=== PATIENT | female | born 1940 | race Caucasian/White ===

== ENCOUNTER 2019-03-03 11:50 | Inpatient (IN) | payer MEDICARE ==
[~2019-03-03] VITALS: Ht 152.4 cm; Wt 73.9 kg
[~2019-03-03 11:50] MED LIST: HYDR12.5 PO; METF-440 PO; QUET25TA PO; RISP0.253 PO; RISP12.5; SERT50TA12 PO
--- NOTE | 2019-03-03 12:30 | NUR ---
BIBDAUGHTER IN LAW, FROM HOME, SENT BY PMD FOR MEDICAL CLEARANCE HEARING VOICES -SI/HI. PATIENT A/OX3, KEPT COMFORTABLE, CHANGED INTO GOWN, ATTACHED TO THE MONITOR. NO DISTRESS.
[2019-03-03 12:44] LABS: BASOPHILS % (AUTO) 0.3 % (0.0-2.0); EOSINOPHILS % (AUTO) 0.6 % (0.0-6.0); HEMATOCRIT 39 % (33-45); HEMOGLOBIN 13.3 g/dL (11.5-14.8); LYMPHOCYTES # (AUTO) 1.3 /CMM (0.8-4.8); MEAN CORPUSCULAR HGB CONC 34 g/dl (31.0-36.0); MEAN CORPUSCULAR VOLUME 89 fL (82-100); MONOCYTES # (AUTO) 0.5 /CMM (0.1-1.30); MONOCYTES % (AUTO) 7.6 % (2.0-12.0); NEUTROPHILS # (AUTO) 4.4 /CMM (1.8-8.9); NEUTROPHILS % (AUTO) 70.5 % (43.0-81.0); PLATELET COUNT (AUTO) 288 /CMM (150-450); RED BLOOD CELL COUNT(AUTO) 4.39 MIL/uL (4.0-5.2); WHITE BLOOD COUNT (AUTO) 6.3 K/uL (4.3-11.0)
[2019-03-03 12:56] LABS: APPEARANCE,URINE Clear (CLEAR); BILIRUBIN,URINE Negative (NEGATIVE); BLOOD, URINE Negative Ery/uL (NEGATIVE); COLOR,URINE Yellow (YELLOW); KETONES,URINE Trace (NEGATIVE); LEUKOCYTE ESTERASE ,URINE Negative (NEGATIVE); NITRITE, URINE Negative (NEGATIVE); PH,URINE 6.5 (5.0-8.0); PROTEIN,URINE Negative (NEGATIVE); UGLUCOSE Negative (NEGATIVE)
[2019-03-03 12:58] LABS: BACTERIA,URINE Few /HPF (None Seen); RBC,URINE 0-2 /HPF (0-2); SQUAMOUS EPITHELIAL CELL,UR Few /HPF (None Seen); WBC,URINE 0-2 /HPF (0-3)
[2019-03-03 12:59] LABS: ALANINE AMINOTRANSFERASE 12 U/L (12-78); ALBUMIN 3.9 g/dL (3.4-5.0); ALKALINE PHOSPHATASE 115 U/L (46-116); ASPARTATE AMINOTRANSFERASE 11 U/L (15-37); BILIRUBIN,DIRECT 0.1 mg/dL (0.0-0.2); BILIRUBIN,TOTAL 0.3 mg/dL (0.2-1.0); CALCIUM, SERUM 9.6 mg/dL (8.5-10.1); CARBON DIOXIDE 26 mmol/L (21-32); CHLORIDE 97 mmol/L (98-107); CREATININE 0.9 mg/dL (0.6-1.3); GLUCOSE 85 mg/dL (74-106); POTASSIUM 4.2 mmol/L (3.5-5.1); SODIUM SERUM 133 mmol/L (136-145); TOTAL PROTEIN, SERUM 7.8 g/dL (6.4-8.2); UREA NITROGEN, BLOOD 13 mg/dL (7-18)
[2019-03-03 13:01] LABS: ACETAMINOPHEN 0 ug/ml (10-30); ALCOHOL, BLOOD < 3 mg/dL (0-0); SALICYLATE 0.9 mg/dL (2.8-20.0)
[2019-03-03] MEDS ORDERED: IV NS 0.9% 500 ML BAG IV ONE (13:30)
[2019-03-03] MEDS ORDERED: LISI10TA5 PO (14:11)
[2019-03-03] MEDS ORDERED: ATOR40TA PO (14:11)
[2019-03-03] MEDS ORDERED: PARO20TA7 PO (14:13)
[2019-03-03] MEDS ORDERED: ARIP5TAB10 PO (14:13)
[2019-03-03] MEDS ORDERED: CHOL100040 PO (14:17)
[2019-03-03] MEDS ORDERED: ASPI-1169 PO (14:17)
[2019-03-03] MEDS ORDERED: FLUT9.9S16 NS (14:17)
[2019-03-03] MEDS ORDERED: TAMS-12 PO (14:17)
[2019-03-03] MEDS ORDERED: CALC600T12 PO (14:17)
[2019-03-03] MEDS ORDERED: LACT1CAP57 PO (14:18)
[2019-03-03] MEDS ORDERED: DICL100G16 TP (14:21)
[2019-03-03] MEDS ORDERED: FLUT16SP NS (14:22)
[2019-03-03] MEDS ORDERED: LOPE2CAP40 PO (14:22)
[2019-03-03] MEDS ORDERED: LOPERAMIDE HCL (2 MG CAP) 2 MG CAPSULE PO PRN (16:00)
[2019-03-03] MEDS: METFORMIN 500 MG TABLET PO SCH (17:00)
--- NOTE | 2019-03-03 17:06 | NUR ---
PATIENT DEPARTED TO [facility], IN STABLE CONDITION.
[2019-03-03] MEDS ORDERED: MAGNESIUM HYDROXIDE 30 ML UDC PO PRN (17:30)
[2019-03-03] MEDS ORDERED: MAG HYDROX/AL HYDROX/SIMETH 30 ML UDC PO PRN (17:30)
[2019-03-03] MEDS ORDERED: LORAZEPAM 0.5 MG TABLET PO PRN (17:30)
[2019-03-03] MEDS ORDERED: ACETAMINOPHEN 325 MG TABLET PO PRN (17:30)
[2019-03-03] MEDS ORDERED: BLOOD SUGAR DIAGNOSTIC 1 EACH STRIP IN ONE (17:30)
[2019-03-03] MEDS ORDERED: TEMAZEPAM 7.5 MG CAPSULE PO PRN (17:30)
[2019-03-03 18:43] VITALS: BP 144/82
--- NOTE | 2019-03-03 18:45 | NUR ---
BAKERY MACHINE MECHANIC NOTE: PATIENT IS A 78 YEAR OLD FEMALE ADMITTED TO [facility] ON A 5150 HOLD FOR GD. PER HOLF, "WHEN INTERVIEWED AT BEDSIDE, PRINCESS PRESENTED FLAT AFFECT, DEPRESSED MOOD, SAD FACIAL EXPRESSION, SHE IS VERY GUARDED AND SHE STATED "I HEAR VOICES I HEAR HEAD TALK. I DON'T WANT TO GO TO THE PSYCH UNIT." HER SON ERICA REPORTS THAT PRINCESS HAS BEEN HALLUCINATING NON-STOP. SHE IS VERY FORGETFUL AND HAS TRIED TO WALK OUT THE FRONT DOOR INTO THE STREET. FAMILY MEMBERS CANNOT LEAVE HER ALONE AND SHE IS UNSAFE FOR DISCHARGE. FAMILY DOES NOT FEEL SAFE WITH HER HOME UNTIL SHE IS STABILIZED ON MEDICATIONS." UPON FACE TO FACE ASSESSMENT, PATIENT IS ALERT X3, FORGETFUL. CONFUSED AT TIMES. WELL GROOMED. CLEAR SPEECH. DENIES SI/HI AT THIS TIME. COOPERATIVE WITH PLAN OF CARE. DEPRESSED MOOD. FLAT AFFECT. GUARDED. PATIENT IS HAVING AUDITORY HALLUCINATIONS. PATIENT STATES SHE IS HEARING INAUDIBLE VOICES. PATIENT DENIES THE VOICES TELLING HER TO HARM HERSELF OR OTHERS. INFORMED PATIENT TO INFORM A STAFF MEMBER IF SHE STARTS TO HAVE COMMAND HALLUCINATIONS OR THE THOUGHT OF HARMING HERSELF/OTHERS. PATIENT HANDBOOK GIVEN ALONG WITH GUIDE TO PRESCRIPTIONS. VSS. SKIN CHECK COMPLETE WITH PICTURES IN CHART. CONSENTS SIGNED. ALLERGIES DOCUMENTED. MRSA COMPLETE IN ER, AWAITING RESULTS. CONTACTED [facility] TO INFORM OF ADMISSION, NO RESPONSE, LEFT VM, WILL ENDORSE TO FOLLOWING SHIFT TO TRY CALLING AGAIN. INVENTORY COMPLETE WITH BELONGINGS. CONTACTED DR DA SILVA AND DR SINGH AND INFORMED THEM OF PATIENT'S ADMISSION, TO REVIEW MEDICATIONS AND RETRIEVE ADMITTING ORDERS. WILL MONITOR PATIENT Q 15 MINUTES FOR SAFETY AND BEHAVIOR PER [facility] [employer].
--- NOTE | 2019-03-03 20:00 | NUR ---
Gps rn note. Patient refused metformin, explained the risk and benefits, patient stated that her blood sugar was within normal level and it was not high enough to take metformin and that was her previous doctor said to her. Patient wanted her blood sugar to be check Qac and hs
[2019-03-03 20:09] VITALS: BP 121/75
[2019-03-03] MEDS ORDERED: DEXTROSE 50%-WATER 50 ML DISP.SYRIN IV PRN (21:00)
[2019-03-03] MEDS: ATORVASTATIN 40 MG TABLET PO SCH (21:18)
[2019-03-03] MEDS: TAMSULOSIN 0.4 MG CAP.SR.24H PO SCH (21:18)
[2019-03-03] MEDS: BLOOD SUGAR DIAGNOSTIC 1 EACH STRIP IN SCH (21:19)
[2019-03-03] MEDS: FLUTICASONE PROPIONATE 16 GM BOTTLE NS SCH (21:19)
[2019-03-03] MEDS ORDERED: ARIPIPRAZOLE 5 MG TABLET PO SCH (22:00)
[2019-03-04 07:41] LABS: ALBUMIN 3.5 g/dL (3.4-5.0); BILIRUBIN,TOTAL 0.5 mg/dL (0.2-1.0); CALCIUM, SERUM 8.8 mg/dL (8.5-10.1); CREATININE 0.7 mg/dL (0.6-1.3); POTASSIUM 3.6 mmol/L (3.5-5.1); TOTAL PROTEIN, SERUM 6.8 g/dL (6.4-8.2)
[2019-03-04] MEDS: BLOOD SUGAR DIAGNOSTIC 1 EACH STRIP IN SCH ×4 (07:46→21:15)
[2019-03-04 07:52] LABS: CHOLESTEROL 115 mg/dL (<200); HDL CHOLESTEROL 62 mg/dL (40-60); LDL 47 mg/dL (0-99); TRIGLYCERIDES 51 mg/dL (30-150)
[2019-03-04 08:00] VITALS: BP 129/75
--- NOTE | 2019-03-04 08:19 | NUR ---
GPS RN NOTES PT ATTEMPTED TO EXIT FLOOR; LEFT ROOM REFUSING TO PUT GOWN ON
[2019-03-04] MEDS: CALCIUM CARBONATE (1250) 500 MG TABLET PO SCH (08:54)
[2019-03-04] MEDS: LISINOPRIL (10MG) 10 MG TABLET PO SCH (08:54)
[2019-03-04] MEDS: CHOLECALCIFEROL 1,000 UNIT TABLET (VIT D3) PO SCH (08:55)
[2019-03-04] MEDS: LACTOBACILLUS RHAMNOSUS GG 1 EACH CAP.SPRINK PO SCH (08:55)
[2019-03-04] MEDS: METFORMIN 500 MG TABLET PO SCH ×2 (08:56→16:54)
[2019-03-04] MEDS: ASPIRIN 81 MG TAB.CHEW PO SCH (08:56)
[2019-03-04] MEDS: DICLOFENAC TOPICAL 100 GM GEL..GM. TP SCH ×2 (09:00→17:00)
--- NOTE | 2019-03-04 11:43 | NUR ---
PHONE CALL SW contacted pts gianna Jama [phone] who provided SW with collateral information and also discussed treatment and discharge planning. Per son, he stated that pt was recently discharged from [facility] last week after being on a 72 hour hold. Son also mentioned that pts primary care physician Dr. Rohan Maya Address: [address], [place] [address] wishes for pt to be discharged to a SNF that he follows. Son stated that he is okay with pt being discharged short term to a SNF.
--- NOTE | 2019-03-04 11:47 | NUR ---
PCP PHONE CALL SW contacted pts primary care physician Dr. Rohan Maya Address: [address], [place] [address] to request a list of SNF's that he follows for discharge planning. Per executive receptionist, Dr. Maya goes to [facility], [facility], and [facility]. Once pt is stable SW will refer pt to those facilities.
--- NOTE | 2019-03-04 13:49 | NUR ---
INITIAL DISCHARGE PLAN: Per gianna Jama [phone], he states that pts primary care physician Dr. Rohan Maya Address: [address], [place] [address] wishes for pt to be discharged to a SNF that he follows. Son stated that he is okay with pt being discharged short term to a SNF. SW will help form a safe and proper discharge in collaboration with .
--- NOTE | 2019-03-04 15:22 | NUR ---
SHONA received a call from pts daughter in law Genevieve [phone] and informed SW that she is pts SS caregiver and wanted to inquire regarding pts discharge plan. SHONA informed her that the plan is for pt to be discharged to one of Dr. Maya's [facility]ilities once pt was stable. Genevieve agreed with discharge plan.
[2019-03-04 16:00] VITALS: BP 143/86
--- NOTE | 2019-03-04 16:32 | NUR ---
Group Note 03/04/19: SW approached patient at bedside and invited them to attend today's support group at 2 pm in the activities room regarding mindfulness. Patient refused to participate in group. SW encouraged pt. to participate or sit in. Patient refused. SW respected patient self determination and SW will invite patient to next group session.
[2019-03-04] MEDS: SERTRALINE HCL 50 MG TABLET PO SCH (17:09)
--- NOTE | 2019-03-04 18:54 | NUR ---
GPS RN NOTES PT'S FAMILY BROUGHT IN [facility] AT 1830. ENDORSED TO PM NURSE TO ENDORSE ADMINISTRATION FOR TMRW.
[2019-03-04 20:39] VITALS: BP 125/88
[2019-03-04] MEDS: ATORVASTATIN 40 MG TABLET PO SCH (21:05)
[2019-03-04] MEDS: TAMSULOSIN 0.4 MG CAP.SR.24H PO SCH (21:05)
[2019-03-04] MEDS: BENZTROPINE MESYLATE (1 MG) 1 MG TABLET PO SCH (21:05)
[2019-03-04] MEDS: FLUTICASONE PROPIONATE 16 GM BOTTLE NS SCH (21:16)
[2019-03-04] MEDS ORDERED: risperiDONE-M 0.5 MG TAB.RAPDIS PO SCH (22:00)
[2019-03-05] MEDS: BLOOD SUGAR DIAGNOSTIC 1 EACH STRIP IN SCH ×4 (07:20→22:31)
[2019-03-05 08:00] VITALS: BP 97/71
[2019-03-05] MEDS: METFORMIN 500 MG TABLET PO SCH ×4 (08:14→16:41)
[2019-03-05] MEDS: CHOLECALCIFEROL 1,000 UNIT TABLET (VIT D3) PO SCH (08:14)
[2019-03-05] MEDS: LACTOBACILLUS RHAMNOSUS GG 1 EACH CAP.SPRINK PO SCH (08:14)
[2019-03-05] MEDS: CALCIUM CARBONATE (1250) 500 MG TABLET PO SCH (08:15)
[2019-03-05] MEDS: ASPIRIN 81 MG TAB.CHEW PO SCH ×2 (08:15→08:34)
[2019-03-05] MEDS: LISINOPRIL (10MG) 10 MG TABLET PO SCH (08:15)
[2019-03-05] MEDS: DICLOFENAC TOPICAL 100 GM GEL..GM. TP SCH ×2 (08:16→16:06)
--- NOTE | 2019-03-05 14:46 | NUR ---
SW received a call from pts gianna Jama [phone] requesting discharge information. SHONA informed him that pt does not have a discharge order yet and that once she was more stable SW will refer to the SNF's Dr. Maya follows. Son agreed and stated he will be coming on this present day to visit pt.
--- NOTE | 2019-03-05 15:27 | NUR ---
GROUP NOTE: SW encouraged pt to attend group on this present day to discuss "impaired reality-testing." Pt was asleep and not easily aroused.
[2019-03-05 16:00] VITALS: BP 132/68
[2019-03-05] MEDS: SERTRALINE HCL 50 MG TABLET PO SCH (16:06)
--- NOTE | 2019-03-05 19:22 | NUR ---
RESTING IN BED, COMFORTABLE, BREATHING PATTERN EVEN, NOT IN ANY FORM OF ANY DISTRESS.
[2019-03-05 19:55] VITALS: BP 104/64
[2019-03-05] MEDS: TAMSULOSIN 0.4 MG CAP.SR.24H PO SCH (21:11)
[2019-03-05] MEDS: ATORVASTATIN 40 MG TABLET PO SCH (21:11)
[2019-03-05] MEDS: BENZTROPINE MESYLATE (1 MG) 1 MG TABLET PO SCH (21:11)
[2019-03-05] MEDS: risperiDONE-M 0.5 MG TAB.RAPDIS PO SCH (21:15)
[2019-03-05] MEDS: FLUTICASONE PROPIONATE 16 GM BOTTLE NS SCH (21:26)
--- NOTE | 2019-03-06 07:30 | NUR ---
INITIAL PT IN BED CALM AND QUIET, COMFORTABLE, NO APPARENT DISTRESS NOTED. COOPERATIVE WILL CONTINUE TO MONITOR
[2019-03-06] MEDS: BLOOD SUGAR DIAGNOSTIC 1 EACH STRIP IN SCH ×4 (07:45→21:54)
[2019-03-06] MEDS: INSULIN REGULAR, HUMAN 100 UNIT/ML 3 ML VIAL SQ PRN ×3 (07:45→17:44)
[2019-03-06 08:00] VITALS: BP 106/63
[2019-03-06] MEDS: LISINOPRIL (10MG) 10 MG TABLET PO SCH (08:41)
[2019-03-06] MEDS: LACTOBACILLUS RHAMNOSUS GG 1 EACH CAP.SPRINK PO SCH (08:41)
[2019-03-06] MEDS: METFORMIN 500 MG TABLET PO SCH ×2 (08:41→16:54)
[2019-03-06] MEDS: CALCIUM CARBONATE (1250) 500 MG TABLET PO SCH (08:41)
[2019-03-06] MEDS: CHOLECALCIFEROL 1,000 UNIT TABLET (VIT D3) PO SCH (08:41)
[2019-03-06] MEDS: ASPIRIN 81 MG TAB.CHEW PO SCH (08:41)
[2019-03-06] MEDS: DICLOFENAC TOPICAL 100 GM GEL..GM. TP SCH ×2 (08:44→16:49)
[2019-03-06 16:00] VITALS: BP 101/59
[2019-03-06] MEDS: SERTRALINE HCL 50 MG TABLET PO SCH (16:54)
--- NOTE | 2019-03-06 18:02 | NUR ---
CLOSING FAMILY CAME TO VISIT PT 0730 POCT-96 THEN AT 12 NOON POCT 74 AND FINALLY AT 1730 POCT 96 ALL THREE INCIDENCE CONFRONTED WITHOUTUSE OF REGULAR INSULIN. PT COOPERATIVE AND CALM ALL DAY TAKING ALL MEDICATIONS AND INSULIN SHOOTS. PT KEPT SAFE CHANTALE REPORT TO PM SHIFT RN FOR CONTINUITY OF CARE
--- NOTE | 2019-03-06 18:07 | NUR ---
CLOSING PT COOPERATIVE AND CALM ALL DAY TAKING ALL MEDICATIONS AFTER COMPLAINS ABOUT WHY DOES SHE HAVE TO TAKE MEDICATIONS PT EXPLAINED PLAN OF CARE. PT KEPT SAFE CHANTALE REPORT TO PM SHIFT RN FOR CONTINUITY OF CARE
--- NOTE | 2019-03-06 19:07 | NUR ---
COMFORTABLE IN BED, SHOWS NO S/S OF ANY PAIN, NO APPARENT DISTRESS NOTED. CALM, COOPERATIVE, ENVIRONMENTAL SAFETY CHECK DONE. SAFETY PRECAUTION OBSERVED, BED ALARM ON. BED ON LOWEST POSITION. WILL CONTINUE TO MONITOR FOR SAFETY.WILL
[2019-03-06 19:53] VITALS: BP 103/66
[2019-03-06] MEDS: FLUTICASONE PROPIONATE 16 GM BOTTLE NS SCH (21:53)
[2019-03-06] MEDS: ATORVASTATIN 40 MG TABLET PO SCH (21:54)
[2019-03-06] MEDS: BENZTROPINE MESYLATE (1 MG) 1 MG TABLET PO SCH (21:54)
[2019-03-06] MEDS: TAMSULOSIN 0.4 MG CAP.SR.24H PO SCH (21:54)
[2019-03-06] MEDS: risperiDONE-M 0.5 MG TAB.RAPDIS PO SCH (21:54)
[2019-03-07] MEDS: BLOOD SUGAR DIAGNOSTIC 1 EACH STRIP IN SCH (07:56)
--- NOTE | 2019-03-07 07:57 | NUR ---
RN NOTE: 0730 BS 86MG/DL; NO COVERAGE NEEDED.
[2019-03-07 08:00] VITALS: BP 100/59
[2019-03-07] MEDS: ASPIRIN 81 MG TAB.CHEW PO SCH (08:29)
[2019-03-07] MEDS: LISINOPRIL (10MG) 10 MG TABLET PO SCH (08:29)
[2019-03-07] MEDS: LACTOBACILLUS RHAMNOSUS GG 1 EACH CAP.SPRINK PO SCH (08:29)
[2019-03-07] MEDS: CALCIUM CARBONATE (1250) 500 MG TABLET PO SCH (08:29)
[2019-03-07] MEDS: CHOLECALCIFEROL 1,000 UNIT TABLET (VIT D3) PO SCH (08:29)
[2019-03-07] MEDS: METFORMIN 500 MG TABLET PO SCH ×2 (08:29→16:36)
--- NOTE | 2019-03-07 09:48 | NUR ---
RN NOTE: INFORMED DR SINGH THAT THE PATIENT'S BS HAS BEEN WNL SINCE HER ADMISSION HERE. PER , JUAN IVANS BS CHECKS AND INSULIN.
[2019-03-07 16:00] VITALS: BP 106/71
[2019-03-07] MEDS: SERTRALINE HCL 50 MG TABLET PO SCH (16:36)
[2019-03-07 19:52] VITALS: BP 110/72
--- NOTE | 2019-03-07 21:00 | NUR ---
RN NOTES: PT. REFUSED WEEKLY SKIN REASSESSMENT AND PICTURES , ENCOURAGED EXPLAINED RISKS AND BENEFITS STILL REFUSED, PER PT. MY SKIN IS FINE ,PT. BEHAVIOR VERY UNCOOPERATIVE , AGGRESSIVE.
[2019-03-07] MEDS: FLUTICASONE PROPIONATE 16 GM BOTTLE NS SCH (21:31)
[2019-03-07] MEDS: BENZTROPINE MESYLATE (1 MG) 1 MG TABLET PO SCH (21:31)
[2019-03-07] MEDS: risperiDONE-M 0.5 MG TAB.RAPDIS PO SCH (21:31)
[2019-03-07] MEDS: TAMSULOSIN 0.4 MG CAP.SR.24H PO SCH (21:32)
[2019-03-07] MEDS: ATORVASTATIN 40 MG TABLET PO SCH (21:32)
[2019-03-08] MEDS: LACTOBACILLUS RHAMNOSUS GG 1 EACH CAP.SPRINK PO SCH (08:39)
[2019-03-08] MEDS: CHOLECALCIFEROL 1,000 UNIT TABLET (VIT D3) PO SCH (08:39)
[2019-03-08] MEDS: METFORMIN 500 MG TABLET PO SCH ×2 (08:39→17:09)
[2019-03-08] MEDS: CALCIUM CARBONATE (1250) 500 MG TABLET PO SCH (08:39)
[2019-03-08] MEDS: LISINOPRIL (10MG) 10 MG TABLET PO SCH (08:41)
[2019-03-08] MEDS: ASPIRIN 81 MG TAB.CHEW PO SCH (08:45)
[2019-03-08 16:00] VITALS: BP 127/69
[2019-03-08] MEDS: SERTRALINE HCL 50 MG TABLET PO SCH (17:09)
[2019-03-08 20:16] VITALS: BP 142/78
[2019-03-08] MEDS: FLUTICASONE PROPIONATE 16 GM BOTTLE NS SCH (21:12)
[2019-03-08] MEDS: BENZTROPINE MESYLATE (1 MG) 1 MG TABLET PO SCH (21:12)
[2019-03-08] MEDS: ATORVASTATIN 40 MG TABLET PO SCH (21:12)
[2019-03-08] MEDS: TAMSULOSIN 0.4 MG CAP.SR.24H PO SCH (21:12)
[2019-03-08] MEDS: risperiDONE-M 0.5 MG TAB.RAPDIS PO SCH (21:13)
[2019-03-09 08:00] VITALS: BP 100/54
[2019-03-09] MEDS: METFORMIN 500 MG TABLET PO SCH ×2 (08:08→17:04)
[2019-03-09] MEDS: ASPIRIN 81 MG TAB.CHEW PO SCH (08:08)
[2019-03-09] MEDS: CALCIUM CARBONATE (1250) 500 MG TABLET PO SCH (08:08)
[2019-03-09] MEDS: LACTOBACILLUS RHAMNOSUS GG 1 EACH CAP.SPRINK PO SCH (08:08)
[2019-03-09] MEDS: CHOLECALCIFEROL 1,000 UNIT TABLET (VIT D3) PO SCH (08:09)
[2019-03-09] MEDS: LISINOPRIL (10MG) 10 MG TABLET PO SCH (08:40)
--- NOTE | 2019-03-09 09:37 | NUR ---
SNF REFERRALS: SHONA faxed SNF referrals to [facility] Address: [address] [place] [address] , [facility] Address: [address] [place] [address] , and [facility] Address: [address] [place] [address] for review.
--- NOTE | 2019-03-09 10:28 | NUR ---
SW received a call from Susan, music coordinator at [facility] Address: [address] [place] [address] stating pt cannot be accepted due to having too many psych issues.
--- NOTE | 2019-03-09 10:39 | NUR ---
SW received a call from Louann, college scouting coordinator at [facility] Address: [address] [place] [id number] stating pt has been accepted to the facility.
[2019-03-09 16:00] VITALS: BP 106/69
--- NOTE | 2019-03-09 16:06 | NUR ---
Group Note: SW encouraged pt to participate in group therapy on 03/09/19 at 2pm discussing "discharge planning." Pt was in her room and refusing to participate but the pt refused and stated that she wanted to remain in her room.
[2019-03-09] MEDS: SERTRALINE HCL 50 MG TABLET PO SCH (17:04)
[2019-03-09 20:24] VITALS: BP 112/87
[2019-03-09] MEDS: FLUTICASONE PROPIONATE 16 GM BOTTLE NS SCH (21:22)
[2019-03-09] MEDS: ATORVASTATIN 40 MG TABLET PO SCH (21:22)
[2019-03-09] MEDS: TAMSULOSIN 0.4 MG CAP.SR.24H PO SCH (21:22)
[2019-03-09] MEDS: risperiDONE-M 0.5 MG TAB.RAPDIS PO SCH (21:23)
[2019-03-09] MEDS: BENZTROPINE MESYLATE (1 MG) 1 MG TABLET PO SCH (21:23)
[2019-03-10] MEDS ORDERED: [UNRECOGNIZED DRUG - SUPPLY] (01:15)
[2019-03-10 08:00] VITALS: BP 135/71
[2019-03-10] MEDS: CHOLECALCIFEROL 1,000 UNIT TABLET (VIT D3) PO SCH (08:10)
[2019-03-10] MEDS: LACTOBACILLUS RHAMNOSUS GG 1 EACH CAP.SPRINK PO SCH (08:10)
[2019-03-10] MEDS: LISINOPRIL (10MG) 10 MG TABLET PO SCH (08:10)
[2019-03-10] MEDS: ASPIRIN 81 MG TAB.CHEW PO SCH (08:10)
[2019-03-10] MEDS: METFORMIN 500 MG TABLET PO SCH ×2 (08:10→16:39)
[2019-03-10] MEDS: CALCIUM CARBONATE (1250) 500 MG TABLET PO SCH (08:10)
[2019-03-10] MEDS: risperiDONE 0.25 MG TABLET PO SCH (08:12)
--- NOTE | 2019-03-10 13:16 | NUR ---
SHONA received a call from pts gianna Jmaa [phone] requesting discharge information. SW informed him that pt does not have a discharge order yet as pt disclosed to psychiatric that she is hearing voices and informed him that psychiatrist has started pt on an antipsychotic. Son sated that he agrees with treatment plan and also stated that he would like to know discharge date as he will be going out of town. SW informed him that as soon as she gets discharge order he would inform him.
--- NOTE | 2019-03-10 15:44 | NUR ---
GROUP NOTE: SW encouraged pt to participate in group on this present day discussing "discharge planning." Pt was in her room and refusing to participate, SW encouraged pt to get up from bed and go to the activity room. Pt agreed and stated that she stays in bed all day because she feels tired as she has not been able to sleep. SW introduced her to another pt and encouraged pt to socialize.
[2019-03-10 16:00] VITALS: BP 107/68
[2019-03-10] MEDS: SERTRALINE HCL 50 MG TABLET PO SCH (16:51)
[2019-03-10 20:17] LABS: ALBUMIN 3.7 g/dL (3.4-5.0); BILIRUBIN,TOTAL 0.3 mg/dL (0.2-1.0); CALCIUM, SERUM 9.5 mg/dL (8.5-10.1); CREATININE 0.8 mg/dL (0.6-1.3); TOTAL PROTEIN, SERUM 7.5 g/dL (6.4-8.2)
[2019-03-10 20:42] VITALS: BP 100/65
[2019-03-10 21:09] LABS: BASOPHILS % (AUTO) 0.4 % (0.0-2.0); EOSINOPHILS % (AUTO) 1.1 % (0.0-6.0); HEMATOCRIT 39 % (33-45); HEMOGLOBIN 13.3 g/dL (11.5-14.8); LYMPHOCYTES # (AUTO) 1.8 /CMM (0.8-4.8); LYMPHOCYTES % (AUTO) 26.8 % (20.0-44.0); MEAN CORPUSCULAR HGB CONC 34 g/dl (31.0-36.0); MEAN CORPUSCULAR VOLUME 88 fL (82-100); MONOCYTES # (AUTO) 0.5 /CMM (0.1-1.30); MONOCYTES % (AUTO) 7.4 % (2.0-12.0); NEUTROPHILS # (AUTO) 4.4 /CMM (1.8-8.9); NEUTROPHILS % (AUTO) 64.3 % (43.0-81.0); PLATELET COUNT (AUTO) 314 /CMM (150-450); RED BLOOD CELL COUNT(AUTO) 4.44 MIL/uL (4.0-5.2); WHITE BLOOD COUNT (AUTO) 6.8 K/uL (4.3-11.0)
[2019-03-10] MEDS: FLUTICASONE PROPIONATE 16 GM BOTTLE NS SCH (21:37)
[2019-03-10] MEDS: BENZTROPINE MESYLATE (1 MG) 1 MG TABLET PO SCH (21:38)
[2019-03-10] MEDS: risperiDONE-M 0.5 MG TAB.RAPDIS PO SCH (21:38)
[2019-03-10] MEDS: ATORVASTATIN 40 MG TABLET PO SCH (21:39)
[2019-03-10] MEDS: TAMSULOSIN 0.4 MG CAP.SR.24H PO SCH (21:39)
[2019-03-11 08:00] VITALS: BP 85/50
[2019-03-11] MEDS: risperiDONE 0.25 MG TABLET PO SCH (08:33)
[2019-03-11] MEDS: CALCIUM CARBONATE (1250) 500 MG TABLET PO SCH (08:33)
[2019-03-11] MEDS: METFORMIN 500 MG TABLET PO SCH ×2 (08:33→16:18)
[2019-03-11] MEDS: LACTOBACILLUS RHAMNOSUS GG 1 EACH CAP.SPRINK PO SCH (08:33)
[2019-03-11] MEDS: CHOLECALCIFEROL 1,000 UNIT TABLET (VIT D3) PO SCH (08:33)
[2019-03-11] MEDS: ASPIRIN 81 MG TAB.CHEW PO SCH (08:33)
[2019-03-11] MEDS: LISINOPRIL (10MG) 10 MG TABLET PO SCH (08:34)
[2019-03-11] MEDS: [UNRECOGNIZED DRUG - SUPPLY] PO SCH (08:35)
--- NOTE | 2019-03-11 14:16 | NUR ---
SHONA contacted Louann, rn admissions at [facility] Address: [address] [place] [address] to inform her pt will be discharged tomorrow 03/12/19 at 12:30pm.
--- NOTE | 2019-03-11 14:18 | NUR ---
SHONA contacted pts gianna Jama [phone] to inform him pt will be discharged tomorrow 03/12/19 to [facility] at 1230pm. Son agreed with discharge plan.
[2019-03-11 16:00] VITALS: BP 110/69
[2019-03-11] MEDS: SERTRALINE HCL 50 MG TABLET PO SCH (16:18)
[2019-03-11 20:21] VITALS: BP 113/72
[2019-03-11] MEDS: BENZTROPINE MESYLATE (1 MG) 1 MG TABLET PO SCH (21:18)
[2019-03-11] MEDS: TAMSULOSIN 0.4 MG CAP.SR.24H PO SCH (21:18)
[2019-03-11] MEDS: FLUTICASONE PROPIONATE 16 GM BOTTLE NS SCH (21:18)
[2019-03-11] MEDS: risperiDONE-M 0.5 MG TAB.RAPDIS PO SCH (21:19)
[2019-03-11] MEDS: ATORVASTATIN 40 MG TABLET PO SCH (21:19)
--- NOTE | 2019-03-12 06:26 | NUR ---
SLEPT WELL FOR 7 HOURS LAST NIGHT, CALM AND QUIET, TOOK ALL HER NIGHT MEDS. COOPERATIVE.
[2019-03-12 08:00] VITALS: BP 127/61
[2019-03-12] MEDS: LACTOBACILLUS RHAMNOSUS GG 1 EACH CAP.SPRINK PO SCH (08:35)
[2019-03-12] MEDS: ASPIRIN 81 MG TAB.CHEW PO SCH (08:35)
[2019-03-12 08:36] VITALS: BP 127/61
[2019-03-12] MEDS: METFORMIN 500 MG TABLET PO SCH (08:36)
[2019-03-12] MEDS: CHOLECALCIFEROL 1,000 UNIT TABLET (VIT D3) PO SCH (08:36)
[2019-03-12] MEDS: CALCIUM CARBONATE (1250) 500 MG TABLET PO SCH (08:36)
[2019-03-12] MEDS: LISINOPRIL (10MG) 10 MG TABLET PO SCH (08:36)
[2019-03-12] MEDS: risperiDONE 0.25 MG TABLET PO SCH (08:36)
[2019-03-12] MEDS: [UNRECOGNIZED DRUG - SUPPLY] PO SCH (08:40)
--- NOTE | 2019-03-12 10:42 | NUR ---
DISCHARGE NOTE: Pt will be discharged at 12:30pm via [facility] to [facility] Address: [address] [place] [address] . Pts son Wiley [phone] has been notified and agrees with discharge plan. Pts mood appears depressed with sad affect. Pt denied visual/auditory hallucinations and denied suicidal/homicidal ideation. Pt will be under the care of Psychiatrist: Dr. Yuki Charles [address], [place] [address] and Pole Cutter: Dr. Rohan Maya Address: [address], [place] [address] . The multidisciplinary exit care form was done, printed, signed, and given to the patient.
--- NOTE | 2019-03-12 12:40 | NUR ---
RN NOTE- PT D/C BY DR. DA SILVA / [facility] SPECIALIST PETER - AWARE. LEFT VIA AMBULANCE TO SNF AT THIS TIME. ALERT ORIENTED TO PERSON PLACE. VSS CALM, COOPERATIVE. DENIES SI AND HI AT THE TIME OF D/C. PERSONAL BELONGINGS W PT. AMBULATORY STEADY GAIT. LOPEZ MALDONADO AWARE OF D/C. REPORT CALLED TO EVELINA AT SNF.
== END 2019-03-12 12:40 | DRG 885 ==
LOC: ER 11:50 → GPS 17:07
PROVIDERS: ADMIT Psychiatry & Neurology Psychosomatic Medicine; ATTEND Internal Medicine
DX: F25.9 Schizoaffective disorder, unspecified (principal); E87.1 Hypo-osmolality and hyponatremia; F23 Brief psychotic disorder; F33.3 Major depressive disorder, recurrent, severe with psychotic symptoms; E11.9 Type 2 diabetes mellitus without complications; I10 Essential (primary) hypertension; I95.2 Hypotension due to drugs; T43.95XA Adverse effect of unspecified psychotropic drug, initial encounter; Y92.89 Other specified places as the place of occurrence of the external cause; E87.6 Hypokalemia; E78.5 Hyperlipidemia, unspecified; J30.9 Allergic rhinitis, unspecified; F41.9 Anxiety disorder, unspecified; F09 Unspecified mental disorder due to known physiological condition
CPT/HCPCS: 36415; 80048-TC; 80053-TC; 80061-TC; 80076-TC; 80305; 81000-TC; 82962-TC; 85025-TC; 87081-TC; G0480; J1815; J7040